=== PATIENT | female | born 1975 ===

== ENCOUNTER 2024-05-21 08:00 | Outpatient (CLI) | payer BC ==
--- NOTE | 2024-05-21 12:16 | XRAY Report ---
PROCEDURE: Chest 2V INDICATIONS: ACUTE COUGH TECHNIQUE: 2 views of the chest were obtained. COMPARISON: None. FINDINGS: Surgical changes and devices: None. Lungs and pleura: No pleural effusions or pneumothorax. Lungs are clear. Mediastinum: Mediastinal contours appear normal. Heart size is normal. Bones and chest wall: No suspicious bony lesions. Overlying soft tissues appear unremarkable. IMPRESSION: Normal two-view chest x-ray Reviewed by: Kian Alejandre MD on 05/21/2024 11:15 AM STEPHEN Approved by: Kian Alejandre MD on 05/21/2024 11:15 AM STEPHEN Station ID: [id number]
== END 2024-05-21 23:59 | disposition home or self-care (01) ==
LOC: DI.S 08:00
PROVIDERS: ATTEND Registered Nurse
DX: R05.1 Acute cough (principal)